=== PATIENT | female | born 1950 | race Caucasian/White ===

== ENCOUNTER 2024-11-18 18:43 | Observation (INO) | payer MEDICARE ==
[~2024-11-18] VITALS: Ht 170.2 cm; Wt 44.0 kg
[2024-11-18] MEDS ORDERED: Ondansetron HCl 2 MG / ML 2ML Vial IV PRN ×2 (19:00→23:20)
[2024-11-18 19:27] LABS: BASOPHILS ABSOLUTE AUTO 0.03 K/mm3 (0.00-0.23); BASOPHILS PERCENT AUTO 0 % (0-2); EOSINOPHILS ABSOLUTE AUTO 0.01 K/mm3 (0.00-0.68); EOSINOPHILS PERCENT AUTO 0 % (0-6); Hematocrit 40.0 % (33.0-51.0); Hemoglobin 12.3 g/dL (11.5-16.0); IMMATURE GRAN ABSOLUTE AUTO 0.12 K/mm3 (0.00-0.10); IMMATURE GRAN PERCENT AUTO 1 % (0-1); LYMPHOCYTES ABSOLUTE AUTO 1.31 K/mm3 (0.84-5.20); LYMPHOCYTES PERCENT AUTO 9 % (21-46); MONOCYTES ABSOLUTE AUTO 1.21 K/mm3 (0.16-1.47); MONOCYTES PERCENT AUTO 8 % (4-13); Mean Corpuscular HGB Conc 30.8 g/dL (31.5-36.5); Mean Corpuscular Volume 97 fL (80-100); NEUTROPHILS ABSOLUTE AUTO 12.50 K/mm3 (1.96-9.15); NEUTROPHILS PERCENT AUTO 82 % (41-73); NRBC ABSOLUTE 0.21 K/mm3 (0.00-0.02); NRBC Auto 1.4 /100 WBC (0.0-0.2); Platelet Count 383 K/mm3 (150-400); RDW Coefficient Variation 17.7 % (11.7-14.2); RDW Standard Deviation 60.2 fL (35.1-46.3)
[2024-11-18 20:37] LABS: Alanine Aminotransfer (ALT/SGP 1477.0 U/L (12-78); Albumin, Blood 3.0 g/dL (3.4-5.0); Albumin/Globulin Ratio 0.8 (0.8-1.8); Anion Gap 20.0 mmol/L (3-11); Aspartate Aminotrans (AST/SGOT 3712.0 U/L (12-37); Bilirubin, Total 1.5 mg/dL (0.1-1.0); Blood Urea Nitrogen 53.0 mg/dL (8-24); CO2, Blood 16.0 mmol/L (21-32); Calcium, Blood 8.6 mg/dL (8.5-10.1); Chloride, Blood 99.0 mmol/L (98-108); Creatinine, Blood 1.75 mg/dL (0.40-1.00); Globulin, Blood 3.9 g/dL (2.2-4.0); Glucose, Blood 46.0 mg/dL (70-99); Potassium, Blood 5.9 mmol/L (3.5-5.5); Sodium, Blood 129.0 mmol/L (136-145); Total Protein, Blood 6.9 g/dL (6.4-8.2)
[2024-11-18] MEDS ORDERED: Insulin Regular 100 Unit/ML 1ML Dose IV ONE (21:00)
[2024-11-18] MEDS ORDERED: NS IV ONE ×2 (21:00→21:05)
[2024-11-18] MEDS ORDERED: DIGOXIN IMMUNE FAB IV ONE ×2 (21:00→21:05)
[2024-11-18] MEDS ORDERED: Albuterol 2.5 MG/3 ML VIAL INH SCH (21:00)
[2024-11-18 21:11] LABS: Prothrombin Time Results 39.0 Sec (9.7-11.5)
[2024-11-18 21:35] LABS: Acetaminophen, Random 11.8 ug/mL (10.0-30.0); Magnesium, Blood 2.3 mg/dL (1.6-2.4); Thyroid Stimulating Hormone 4.89 uIU/mL (0.360-4.800)
[2024-11-18] MEDS ORDERED: Ondansetron HCl 2 MG / ML 2ML Vial IV ONE (21:40)
[2024-11-18] MEDS ORDERED: Morphine Sulfate 4 MG/1 ML Injection IV ONE ×2 (21:40→23:00)
[2024-11-18] MEDS ORDERED: FentaNYL Citrate 50 MCG/ML 2 ML Injection IV PRN (23:10)
[2024-11-19] MEDS ORDERED: FentaNYL Citrate 50 MCG/ML 2 ML Injection IV PRN (05:53)
--- NOTE | 2024-11-19 06:26 | NUR ---
SHIFT SUMMARY PT ADMITTED TO ROOM 360 FROM ED FOR EVA/ COMFORT CARE. PT MEDICATED FOR PAIN AND NAUSEA PER EMAR. IV FENTANYL NOT LASTING THE ORDERED 4 HOUR FREQUENCY- ORDER RECEIVED TO INCREASE FREQUENCY TO Q 3HR PRN. PT C/O NECK AND RIGHT SHOULDER PAIN. STATES ABDOMEN IS UNCOMFORTABLE, BUT NOT NEARLY PAINFUL NECK/SHOULDER. PT WITHOUT VOID THIS SHIFT. PT WITH 1 VERY SMALL BM- NO BLOOD NOTED. PT NPO- FREQUENT MOUTH CARE PROVIDED. MEPELEX PLACED TO COCCYX FOR PROTECTION- NO BREAKDOWN OR REDNESS NOTED. PT RESTING INTERMITTENTLY WITH FAMILY AT BEDSIDE.
[2024-11-19] MEDS ORDERED: LORazepam 2 MG/ML 1ML Injection IV ONE (06:50)
[2024-11-19] MEDS ORDERED: HYDROmorphone HCl/Pf 1MG SYR IV ONE (06:50)
--- NOTE | 2024-11-19 07:11 | NUR ---
PT WITH SUDDEN CHANGE IN MENTATION. AT 0640, PT C/O INTENSE PAIN TO ABDOMEN, NECK AND R SHOULDER. HEATING PAD PROVIDED FOR SHOULDER/NECK DR NOTIFIED OF INCREASED PAIN. ORDERS RECEIVED FOR DILAUDID AND ATIVAN. WHEN THIS RN WENT TO ROOM WITH MEDICATIONS, PT NO LONGER RESPONDING, AND BREATHING IS MORE LABORED. FAMILY STATES THIS BEGAN SHORTLY AFTER I LEFT THE ROOM TO CALL THE DOCTOR. PT MEDICATED PER ORDER. WILL REPORT TO ONCOMING NURSE.
--- NOTE | 2024-11-19 07:59 | NUR ---
RN RECIEVED BEDSIDE REPORT WITH FAMILY PRESENT. OUTGOING RN EXPLAINED THE SUDDEN CHANGE IN MENTATION AND LABORED BREATHING. THIS RN ASSESSED YOKO RUCKER BREATHING. ONCE SHIFT REPORT WAS COMPLETE, OUTGOING RN LEFT AND THIS RN STAYED AT THE BEDSIDE TO TALK TO THE FAMILY. BEFORE I LEFT, I CHECKED FOR A PULSE AND HEART SOUNDS. NO PULSE WAS PALPABLE AND NO HEART SOUNDS WERE HEARD. I LEFT THE ROOM TO SPEAK WITH MY DEPUTY CHIEF EXECUTIVE AND ASK FOR HER TO VERIFY TIME OF . THE DEPUTY CHIEF EXECUTIVE LISTENED FOR HEART SOUNDS AND NONE WAS HEARD, WE DETERMINED TIME OF WAS AT 07:27. DR. PÉREZ NOTIFIED BY TELEPHONE. DR. PÉREZ JUST SOPPED BY TO TALK TO ME AND GET HE FULL UPDATE ON THE PATIENT. FAMILY LEFT AT 07:45. THE PATIENT'S SISTER, NEFTALY CHENG LEFT HER PHONE NUMBER .
--- NOTE | 2024-11-19 09:30 | NUR ---
0925- THIS RN CALLED [facility] AND INFORMED THEM THAT BLENDER/BRAZE APPLICATOR VICENTA BURROUGHS REQUESTED PT BE PICKED UP BY [facility]. [employer]OR [employer] STAFF CHIARA VERBALIZED UNDERSTANDING. [facility] CALLED AND ROSA-STAFF NOTIFIED TO ANESTHESIOLOGISTS' ASSISTANT PT. ROSA STATED SHE COULD BE HERE IN ABOUT 45 MINUTES. THIS RN NOTIFIED [facility] STAFF THAT PT IS A CRM BUSINESS ANALYST (ME) HOLD/CASE. ROSA VERBALIZED UNDERSTANDING.
--- NOTE | 2024-11-19 11:06 | NUR ---
BRITTON ROBERTS FROM [facility] PICKED THE PATIENT UP AND TOOK HER AWAY. ROSA DID SPEAK TO THE PATIENT'S SISTER, NEFTALY OVER THE PHONE WHILE HERE AT THE HOSPITAL.
[2024-11-20 16:47] LABS: HEPATITIS A ANTIBODY, IGM Negative (Negative); HEPATITIS C AB CIA INTERP Negative (Negative); HEPATITIS C ANTIBODY CIA INDEX 0.04 IV
== END 2024-11-19 07:27 ==
LOC: ER 18:43 → MEDS 18:44
PROVIDERS: Emergency Medicine; ADMIT Internal Medicine
DX: K72.00 Acute and subacute hepatic failure without coma (principal); I50.9 Heart failure, unspecified; N17.9 Acute kidney failure, unspecified; N28.0 Ischemia and infarction of kidney; Z51.5 Encounter for palliative care; C34.90 Malignant neoplasm of unspecified part of unspecified bronchus or lung; J44.9 Chronic obstructive pulmonary disease, unspecified; I48.91 Unspecified atrial fibrillation; E87.5 Hyperkalemia; E16.2 Hypoglycemia, unspecified; R74.01 Elevation of levels of liver transaminase levels; E87.20 Acidosis, unspecified; T46.0X5A Adverse effect of cardiac-stimulant glycosides and drugs of similar action, initial encounter; K62.5 Hemorrhage of anus and rectum; D68.59 Other primary thrombophilia; Z66 Do not resuscitate
CPT/HCPCS: 36415; 71046; 74177; 76705; 80053; 80074; 80162; 82140; 82947; 83605; 83690; 83735; 83880; 84439; 84443; 84484; 85025; 85610; 85730; 86850; 86900; 86901; 87040; 93005; 93010; 96365-59; 96375; 96376; 99285-25; G0378; G0480; J1162; J1171; J1815; J1938; J2060; J2270; J2405; J3010; Q9967